=== PATIENT | female | born 1990 | race Caucasian/White ===

== ENCOUNTER 2017-03-17 00:49 | Emergency (ER) | payer OTHER ==
[2017-03-17 01:25] LABS: BILIRUBIN NEGATIVE (NEGATIVE); BLOOD NEGATIVE Ery/uL (NEGATIVE); COLOR YELLOW (YELLOW); GLUCOSE (U) NORMAL (NORMAL); KETONE (U) 3+ (LARGE) mg/dL (NEGATIVE); LEUKOCYTES TRACE Leu/uL (NEGATIVE); NITRITE NEGATIVE (NEGATIVE); PROTEIN 1+ mg/dL (NEGATIVE); SPECIFIC GRAVITY >=1.030 (1.001-1.030)
[2017-03-17 01:29] LABS: CLARITY SLIGHTLY HAZY (CLEAR)
[2017-03-17 01:31] LABS: BACTERIA 1+; MUCOUS MODERATE
[2017-03-17 01:39] LABS: BASOPHIL 0.3 % (0-2); EOSINOPHIL 0.1 % (0-5); HCT 38.5 % (37.0-47.0); HGB 12.9 g/dl (12.5-16.0); LYMPHOCYTE 2.7 % (15-48); MCH 27.5 pg (25.0-31.0); MCHC 33.5 g/dL (32.0-36.0); MCV 82.1 fL (78.0-100.0); MONOCYTE 4.8 % (0-12); MPV 10.6 fL (6.0-9.5); NEUTROPHIL 92.1 % (41-80); PLT 239 K/uL (150-400); RBC 4.69 M/uL (4.20-5.40); RDW 14.7 % (11.5-14.0); WBC 12.8 K/uL (4.0-10.5)
[2017-03-17 01:58] LABS: ALBUMIN 3.8 g/dL (3.5-5.0); BILIRUBIN - TOTAL 0.4 mg/dL (0.1-1.0); CREATININE 0.5 mg/dL (0.5-1.0); POTASSIUM 3.3 mmol/L (3.5-5.1); TOTAL PROTEIN 6.8 g/dL (6.4-8.3)
== END 2017-03-17 06:33 | disposition home or self-care (01) ==
LOC: FER 00:49
PROVIDERS: Emergency Medicine Emergency Medical Services
DX: O21.0 Mild hyperemesis gravidarum (principal); O99.89 Other specified diseases and conditions complicating pregnancy, childbirth and the puerperium; R19.7 Diarrhea, unspecified; R50.9 Fever, unspecified; Z90.49 Acquired absence of other specified parts of digestive tract; Z90.89 Acquired absence of other organs; Z88.0 Allergy status to penicillin; Z3A.25 25 weeks gestation of pregnancy
CPT/HCPCS: 36415; 80053; 81001; 85025; 87040; 87088; J2765

== ENCOUNTER 2022-05-12 23:25 | Inpatient (IN) | payer OTHER ==
[~2022-05-12] VITALS: Ht 165.1 cm; Wt 64.0 kg
[2022-05-13 00:20] LABS: BILIRUBIN NEGATIVE (NEGATIVE); BLOOD TRACE-INTACT Ery/uL (NEGATIVE); CLARITY CLEAR (CLEAR); COLOR YELLOW (YELLOW); GLUCOSE (U) NORMAL (NORMAL); LEUKOCYTES 3+ Leu/uL (NEGATIVE); NITRITE NEGATIVE (NEGATIVE); PROTEIN NEGATIVE (NEGATIVE); SPECIFIC GRAVITY 1.015 (1.001-1.030); UROBILINOGEN 0.2 mg/dL (0.2-1.0)
[2022-05-13 00:31] LABS: HGB 12.9 g/dl (12.5-16.0); MCHC 31.5 g/dL (32.0-36.0); MCV 82.5 fL (78.0-100.0); MPV 11.3 fL (6.0-9.5); RBC 4.97 M/uL (4.20-5.40); RDW 15.7 % (11.5-14.0)
[2022-05-13 00:33] LABS: BACTERIA 1+
[2022-05-13 00:48] LABS: ALBUMIN 3.1 g/dL (3.4-5.0); BILIRUBIN - TOTAL 0.4 mg/dL (0.2-1.0); BUN/CREAT RATIO (CALC) 10.9 RATIO; CREATININE 0.55 mg/dL (0.51-0.95); GLOBULIN (CALCULATION) 4.3 g/dL; POTASSIUM 3.4 mmol/L (3.5-5.1); TOTAL PROTEIN 7.4 g/dL (6.4-8.2)
[2022-05-14 07:36] LABS: HCT 36.6 % (37.0-47.0); HGB 11.5 g/dl (12.5-16.0); MCH 26.1 pg (25.0-31.0); MCHC 31.4 g/dL (32.0-36.0); MCV 83.2 fL (78.0-100.0); MPV 11.7 fL (6.0-9.5); RBC 4.4 M/uL (4.20-5.40); RDW 15.6 % (11.5-14.0); WBC 19.3 K/uL (4.0-10.5)
== END 2022-05-15 12:57 | disposition home or self-care (01) | DRG 806 ==
LOC: FOD 23:25 → FOB 23:25 → FOD 05-13 06:55 → FOB 05-13 06:55
PROVIDERS: ADMIT Obstetrics & Gynecology
PROC: 10E0XZZ Delivery of Products of Conception, External Approach (ICD-10-PCS; principal; 2022-05-13)
PROC: 0KQM0ZZ Repair Perineum Muscle, Open Approach (ICD-10-PCS; 2022-05-13)
PROC: 0UQMXZZ Repair Vulva, External Approach (ICD-10-PCS; 2022-05-13)
DX: O99.42 Diseases of the circulatory system complicating childbirth (principal); I47.1 Supraventricular tachycardia; Z37.0 Single live birth; O99.284 Endocrine, nutritional and metabolic diseases complicating childbirth; E03.9 Hypothyroidism, unspecified; O99.02 Anemia complicating childbirth; O70.1 Second degree perineal laceration during delivery; O99.824 Streptococcus B carrier state complicating childbirth; Z3A.38 38 weeks gestation of pregnancy
CPT/HCPCS: 36415; 80053; 81001; 86850; 86900; 86901; 87088; J2001; J2270; J2540; J3105; J7120